=== PATIENT | female | born 2000 | race Two or more races ===

== ENCOUNTER → 2020-04-16 | Outpatient (REF) | payer OTHER ==
[2020-04-16 17:13] LABS: HEMATOCRIT 29.6 % (36.0-47.0); HEMOGLOBIN 8.7 g/dl (12.0-15.5); MEAN CORPUSCULAR HEMOGLOBIN 21.5 pg (27.0-33.0); MEAN CORPUSCULAR HGB CONC 29.4 g/dl (32.0-36.5); MEAN CORPUSCULAR VOLUME 73.1 fl (80.0-96.0); PLATELET COUNT, AUTOMATED 304 10^3/uL (150-450); RED BLOOD COUNT 4.05 10^6/uL (4.00-5.40); WHITE BLOOD COUNT 6.8 10^3/uL (4.0-10.0)
[2020-04-16 17:17] LABS: GLUCOSE CHALLENGE TEST 1 HOUR 99 MG/DL (LESS THAN 140)
[2020-04-16 18:12] LABS: HIV 1&2 SCREEN CENTAUR NEGATIVE (NEGATIVE)
== END ==
LOC: M PLALAB 14:36
PROVIDERS: ATTEND Advanced Practice Midwife
DX: Z3A.26 26 weeks gestation of pregnancy (principal)
CPT/HCPCS: 36415; 82950; 85027; 86803; 86850; 86900; 86901; 87340; 87389; G0463

== ENCOUNTER → 2020-05-19 | Outpatient (REF) | payer OTHER ==
[2020-05-24 09:06] LABS: HEMOGLOBIN A 98.3 % (96.4-98.8); HEMOGLOBIN A2 1.7 % (1.8-3.2); HGB SOLUBILITY Negative (Negative)
== END ==
LOC: M PLALAB 14:50
PROVIDERS: ATTEND Obstetrics & Gynecology
DX: O99.013 Anemia complicating pregnancy, third trimester (principal)
CPT/HCPCS: 36415; 83021; 85660; G0463

== ENCOUNTER 2020-05-26 09:34 | Outpatient (CLI) | payer OTHER ==
[~2020-05-26] VITALS: Ht 167.6 cm; Wt 67.2 kg
[~2020-05-26 09:34] MED LIST: IRON SUCROSE 500 MG in NS 250 ML OVER 4 HRS IV ONE
[2020-05-26 09:40] VITALS: BP 118/73
[2020-05-26] MEDS ORDERED: FERR325T81 PO (10:07)
[2020-05-26] MEDS ORDERED: PREN1CHW6 PO (10:08)
[2020-05-26 10:45] VITALS: BP 114/68
[2020-05-26 11:45] VITALS: BP_SYST 107
[2020-05-26 12:41] VITALS: BP 111/61
[2020-05-26 14:30] VITALS: BP 96/53
== END 2020-05-26 14:35 | disposition home or self-care (01) ==
LOC: M INFU 09:34
PROVIDERS: ATTEND Obstetrics & Gynecology
DX: D64.9 Anemia, unspecified (principal)
CPT/HCPCS: 96365; 96366; J1756

== ENCOUNTER → 2020-06-03 | Outpatient (REF) | payer OTHER ==
[~2020-06-03] MED LIST changes: +FERR325T81 PO; -IRON SUCROSE 500 MG in NS 250 ML OVER 4 HRS IV ONE; +PREN1CHW6 PO
== END ==
LOC: M PLALAB 16:19
PROVIDERS: ATTEND Obstetrics & Gynecology
DX: Z3A.36 36 weeks gestation of pregnancy (principal)

== ENCOUNTER → 2020-06-14 | Outpatient (REF) | payer OTHER ==
[2020-06-14 18:07] LABS: HEMATOCRIT 34.6 % (36.0-47.0); HEMOGLOBIN 10.3 g/dl (12.0-15.5); MEAN CORPUSCULAR HEMOGLOBIN 22.4 pg (27.0-33.0); MEAN CORPUSCULAR HGB CONC 29.8 g/dl (32.0-36.5); MEAN CORPUSCULAR VOLUME 75.2 fl (80.0-96.0); PLATELET COUNT, AUTOMATED 289 10^3/uL (150-450); WHITE BLOOD COUNT 7.6 10^3/uL (4.0-10.0)
== END ==
LOC: M PLALAB 08:33
PROVIDERS: ATTEND Obstetrics & Gynecology
DX: D64.9 Anemia, unspecified (principal)
CPT/HCPCS: 36415; 85027; G0463

== ENCOUNTER 2020-07-06 00:50 | Inpatient (IN) | payer OTHER ==
[~2020-07-06] VITALS: Ht 167.6 cm; Wt 67.3 kg
[2020-07-06] VITALS (35 sets, daily range): BP systolic 95–122; BP diastolic 53–79
[2020-07-06] MEDS ORDERED: LR 1,000 ML IV SCH (01:59)
[2020-07-06] MEDS ORDERED: PENICILLIN G POTASSIUM IV 5 MU in D5W MINI-BAG PLUS 100 ML IV STA (01:59)
[2020-07-06] MEDS ORDERED: LACTATED RINGER'S 1000 ML IV STA (01:59)
[2020-07-06] MEDS ORDERED: OXYTOCIN DRIP 30 UNITS in IV 1 EA IV SCH (02:00)
--- OUTSIDE RECORDS SUMMARY | 2020-07-06 02:09 | CCD ---
Author Author [facility] Organization [facility] Address Unknown Phone Unavailable Care Team Providers Care Training Instructor Name Role Phone Idania Combs Unavailable PROBLEMS Type Condition ICD9-CM Code [id number] Code Onset Dates Condition S tatus SNOMED Code Notes Problem Encounter for supervision of other normal pregna ncy, second trimester Z34.82 Active 71326249 Problem Supervision of other normal Z34.80 Ac tive [id number] ALLERGIES No Known Allergies ENCOUNTERS from 1998 to 2020-04-09 Encounter Location Date Provider Diagnosis [facility] [place] [address] Mar, Idania Combs Encounter for sup ervision of other normal , second trimester Z34.82 and 26 weeks gestation of Z3A.26 IMMUNIZATIONS No Information SOCIAL HISTORY Tobacco Use: Social History Observation Description Date Details (start date - stop date) Never Smoker Sex Assigned At : Social History Observation Description Sex Assigned At Unknown Domestic Violence: Question Answer Notes Status: No history of abuse Sexual Hx: Question Answer Notes Had sex in the last 12 months (vaginal, oral, or anal)? Yes Have you ever had an STD? No with Men only Use protection? No Alcohol Screening: Question Answer Notes Did you have a drink containing alcohol in the past year? No Points 0 Interpretation Negative Tobacco Use: Question Answer Notes Are you a: never smoker REASON FOR REFERRAL No Information VITAL SIGNS Weight 139.0 lbs Mar, Height 66 in Mar, BMI 22.435 kg/m2 Mar, Blood pressure systolic 102 mm Hg Mar, Blood pressure diastolic 68 mm Hg Mar, MEDICATIONS Medication SIG (Take, Route, Frequency, Duration) Notes Start Da te End Date Status 27-1 MG 1 tablet Orally Once a day Active PROCEDURES No Information RESULTS No Results REASON FOR VISIT new OB,ESTABLISH CARE Goals Section No Information Health Concerns No Information MEDICAL EQUIPMENT No Information MENTAL STATUS No Information FUNCTIONAL STATUS No Information ASSESSMENTS Encounter Date Diagnosis Assessment Notes Treatment Notes Treatm ent Clinical Notes Mar, Encounter for supervision of other normal , second trimester (ICD-10 - Z34.82) Mar, 26 weeks gestation of (ICD-10 - Z3A.26 ) PLAN OF TREATMENT Treatment Notes Test Name Order Date CBC - Complete Blood Count 2020-04-09 AB SCREEN (INDIRECT DORIAN)GEL Antibody Screen 2020-03 Type and Screen (D Rh Antibody Screen) 2020-04-09 Glucose Challenge Test 1 Hour 2020-04-09 HIV 1&2 ANTIBODY SCREEN 2020-04-09 HEPATITIS C ANTIBODY INDEX 2020-04-09 HBSAG 2020-04-09 Next Appt Details 2 Weeks Reason: Follow Up:2 WeeksPrenatal Insurance Providers Payer Name Payer Address Payer Phone Insured Name Patient Relati onship to Insured Coverage Start Date Coverage End Date [facility] [address] [place] [id number] ANISA FINK self
--- OUTSIDE RECORDS SUMMARY | 2020-07-06 02:09 | CCD ---
Author Author [facility] Organization [facility] Address Unknown Phone Unavailable Care Team Providers Care Cement Patcher Name Role Phone Manju Pack Unavailable PROBLEMS Type Condition ICD9-CM Code UPT85-AR Code Onset Dates Condition S tatus W/U Status Risk SNOMED Code Notes Problem Supervision of other normal Z34.80 Ac tive confirm 961106295 Problem Anemia affecting in third trimester O99. 013 Active confirmed 51729850 Problem Encounter for supervision of other normal pregna ncy, second trimester Z34.82 Active confirmed 45622310 ALLERGIES No Known Allergies ENCOUNTERS from 1998 to 2020-07-01 Encounter Location Date Provider Diagnosis [facility] [address] [place] [phone] 15 Jun, 2020 Manju Pack 39 weeks gestation o f Z3A.39 ; Anemia affecting in third trimester O99.013 and Anemia D64.9 IMMUNIZATIONS Vaccine Route Administration Date Status TDAP 0.5mL (Boostrix) IM Intramuscular May 03, 2020 Administe red SOCIAL HISTORY Tobacco Use: Social History Observation Description Date Details (start date - stop date) Never Smoker Sex Assigned At : Social History Observation Description Sex Assigned At Unknown Language: Question Answer Notes Languages spoken: North Korean Domestic Violence: Question Answer Notes Status: No history of abuse Alcohol Screening: Question Answer Notes Did you have a drink containing alcohol in the past year? No Points 0 Interpretation Negative Tobacco Use: Question Answer Notes Are you a: never smoker Are you a: never smoker REASON FOR REFERRAL No Information VITAL SIGNS Weight 150 lbs 15 Feb, 2021 Height 66 in Jun, BMI 24.211 kg/m2 Jun, Blood pressure systolic 102 mm Hg Jun, Blood pressure diastolic 60 mm Hg Jun, MEDICATIONS Medication SIG (Take, Route, Frequency, Duration) Notes Start Da te End Date Status Ferrous Sulfate 325 (65 Fe) MG 1 tablet Orally twice daily for 3 0 day(s) Apr, Active 27-1 MG 1 tablet Orally Once a day Active PROCEDURES No Information RESULTS No Results REASON FOR VISIT 1WK PN Goals Section No Information Health Concerns No Information MEDICAL EQUIPMENT No Information MENTAL STATUS No Information FUNCTIONAL STATUS No Information ASSESSMENTS Encounter Date Diagnosis Assessment Notes Treatment Notes Treatm ent Clinical Notes Jun, 39 weeks gestation of (ICD-10 - Z3A.39 ) Jun, Anemia affecting in third trimester (I CD-10 - O99.013) Jun, Anemia (ICD-10 - D64.9) PLAN OF TREATMENT Next Appt Details 1 Week Reason:PN Provider Name:Manju Pack, 2020-06 10:20:00 AM, [address] [place], [address], Follow Up:1 WeekPN Insurance Providers Payer Name Payer Address Payer Phone Insured Name Patient Relati onship to Insured Coverage Start Date Coverage End Date [facility] INSURANCE [address] [place] [id number] ANISA FINK self
--- OUTSIDE RECORDS SUMMARY | 2020-07-06 02:09 | CCD ---
Author Author [facility] Organization [facility] Address Unknown Phone Unavailable Care Team Providers Care Professor Of Languages Name Role Phone Susu Radford Unavailable PROBLEMS Type Condition ICD9-CM Code [id number] Code Onset Dates Condition S tatus SNOMED Code Notes Problem Encounter for supervision of other normal pregna ncy, second trimester Z34.82 Active 58043333 Problem Supervision of other normal Z34.80 Ac tive [id number] ALLERGIES No Known Allergies ENCOUNTERS from 1998 to 2020-04-21 Encounter Location Date Provider Diagnosis [facility] [place] [address] Apr, Susu Radford Encounter for superv ision of normal in third trimester Z34.93 and 29 weeks gestation of Z3A.29 IMMUNIZATIONS No Information SOCIAL HISTORY Tobacco Use: [...] FOR REFERRAL No Information VITAL SIGNS Weight 143 lbs Apr, Height 66 in Apr, BMI 23.081 kg/m2 Apr, Blood pressure systolic 104 mm Hg Apr, Blood pressure diastolic 66 mm Hg Apr, MEDICATIONS Medication SIG (Take, Route, Frequency, Duration) Notes Start Da te End Date Status 27-1 MG 1 tablet Orally Once a day Active PROCEDURES No Information RESULTS No Results REASON FOR VISIT pn Goals Section No Information Health Concerns No Information MEDICAL EQUIPMENT No Information MENTAL STATUS No Information FUNCTIONAL STATUS No Information ASSESSMENTS Encounter Date Diagnosis Assessment Notes Treatment Notes Treatm ent Clinical Notes Apr, Encounter for supervision of normal in third trimester (ICD-10 - Z34.93) Apr, 29 weeks gestation of (ICD-10 - Z3A.29 ) PLAN OF TREATMENT Next Appt Details 2 Weeks Reason: Insurance Providers Payer Name Payer Address Payer Phone Insured Name Patient Relati onship to Insured Coverage Start Date Coverage End Date [facility] INS[facility]ANCE [address] [place] [id number] ANISA FINK self
--- OUTSIDE RECORDS SUMMARY | 2020-07-06 02:09 | CCD ---
Author Author [facility] Organization [facility] Address Unknown Phone Unavailable Support Name Relationship Address Phone JAY FINKIS [address]AR [id number] [place] [address] MARCOS SOLIS ECON [id number] [place] [address] Care Team Providers Care Filter Plant Operator Name Role Phone Manju Pack Unavailable PROBLEMS Type Condition ICD9-CM Code [id number] Code Onset Dates Condition S tatus W/U Status Risk SNOMED Code Notes Problem Supervision of other normal Z34.80 Ac tive confirm 103527816 Problem Anemia affecting in third trimester O99. 013 Active confirmed 03559129 Problem Encounter for supervision of other normal pregna ncy, second trimester Z34.82 Active confirmed 52667619 ALLERGIES No Known Allergies ENCOUNTERS from 1998 to 2020-06-19 Encounter Location Date Provider Diagnosis [facility] Women[facility] Breast Care [address] [place] [phone] Jun, Manju Pack 37 weeks gestation o f Z3A.37 ; Anemia D64.9 and Anemia affecting in third trimester O99.013 IMMUNIZATIONS Vaccine Route Administration Date Status TDAP 0.5mL (Boostrix) IM Intramuscular May 03, 2020 Administe red SOCIAL HISTORY Tobacco Use: Social History Observation Description Date Details (start date - stop date) Never Smoker Sex Assigned At : Social History Observation Description Sex Assigned At Unknown Language: Question Answer Notes Languages spoken: Norwegian Domestic Violence: Question Answer Notes Status: No history of abuse Alcohol Screening: Question Answer Notes Did you have a drink containing alcohol in the past year? No Points 0 Interpretation Negative Tobacco Use: Question Answer Notes Are you a: never smoker Are you a: never smoker REASON FOR REFERRAL No Information VITAL SIGNS Weight 147.6 lbs Jun, Weight-kg 66.95 kg Jun, Height 66 in Jun, BMI 23.823 kg/m2 Jun, Blood pressure systolic 110 mm Hg Jun, Blood pressure diastolic 68 mm Hg Jun, MEDICATIONS Medication SIG (Take, Route, Frequency, Duration) Notes Start Da te End Date Status 27-1 MG 1 tablet Orally Once a day Active Ferrous Sulfate 325 (65 Fe) MG 1 tablet Orally twice daily for 3 0 day(s) Apr, Active PROCEDURES No Information RESULTS Component Value Reference Range CBC - Complete Blood Count Reviewed date:06/15/2020 13:05:12 Interpretation: Performing Lab:[facility], [facility] [address] [facility] [address] , ,[place] [address] WHITE BLOOD COUNT 7.6 4.0-10.0 RED BLOOD COUNT 4.60 4.00-5.40 HEMOGLOBIN 10.3 12.0-15.5 HEMATOCRIT 34.6 36.0-47.0 MEAN CORPUSCULAR VOLUME 75.2 80.0-96.0 MEAN CORPUSCULAR HEMOGLOBIN 22.4 27.0-33.0 MEAN CORPUSCULAR HGB CONC 29.8 32.0-36.5 RED CELL DISTRIBUTION WIDTH 20.2 11.5-14.5 PLATELET COUNT, AUTOMATED 289 150-450 REASON FOR VISIT 1WK PN Goals Section No Information Health Concerns No Information MEDICAL EQUIPMENT No Information MENTAL STATUS No Information FUNCTIONAL STATUS No Information ASSESSMENTS Encounter Date Diagnosis Assessment Notes Treatment Notes Treatm ent Clinical Notes Jun, 37 weeks gestation of (ICD-10 - Z3A.37 ) Jun, Anemia (ICD-10 - D64.9) Jun, Anemia affecting in third trimester (I CD-10 - O99.013) PLAN OF TREATMENT Next Appt Details 1 Week Reason:PN Provider Name:Manju Pack, 2020-06 02:40:00 PM, [address] [place], [address], Follow Up:1 WeekPN Insurance Providers Payer Name Payer Address Payer Phone Insured Name Patient Relati onship to Insured Coverage Start Date Coverage End Date [facility] INS[facility] [address] [place] [id number] ANISA FINK self
--- OUTSIDE RECORDS SUMMARY | 2020-07-06 02:09 | CCD ---
Author Author [facility] Organization [facility] Address Unknown Phone Unavailable Care Team Providers Care Lead Front Desk Agent Name Role Phone Idania Combs Unavailable PROBLEMS Type Condition ICD9-CM Code [id number] Code Onset Dates Condition S tatus SNOMED Code Notes Problem Encounter for supervision of other normal pregna ncy, second trimester Z34.82 Active 29656651 Problem Supervision of other normal Z34.80 Ac tive 880175383 ALLERGIES No Known Allergies ENCOUNTERS from 1998 to 2020-04-20 Encounter Location Date Provider Diagnosis [facility] Women[facility] Breast Care [facility] [place] [address] Mar, Idania Combs Encounter for sup ervision [...] a day Active PROCEDURES No Information RESULTS REASON FOR VISIT new OB,ESTABLISH CARE Goals [...] Order Date CBC - Complete Blood Count 2020-04-20 AB SCREEN (INDIRECT DORIAN)GEL Antibody Screen 2020-04 Glucose Challenge Test 1 Hour 2020-04-20 HIV 1&2 ANTIBODY SCREEN 2020-04-20 HEPATITIS C ANTIBODY INDEX 2020-04-20 HBSAG 2020-04-20 Next Appt Details 2 Weeks Reason: Follow Up:2 WeeksPrenatal Insurance Providers Payer Name Payer Address Payer Phone Insured Name Patient Relati onship to Insured Coverage Start Date Coverage End Date [facility] INS[facility] [address] [place] [address] ANISA FINK self
--- OUTSIDE RECORDS SUMMARY | 2020-07-06 02:09 | CCD ---
Author Author [facility] Organization [facility] Address Unknown Phone Unavailable Care Team Providers Care Sales Representative Sales Manager Name Role Phone Manju Pack Unavailable PROBLEMS Type Condition ICD9-CM Code [id number] Code Onset Dates Condition S tatus W/U Status Risk SNOMED Code Notes Problem Supervision of other normal Z34.80 Ac tive confirm 308969155 Problem Anemia affecting in third trimester O99. 013 Active confirmed 43534768 Problem Encounter for supervision of other normal pregna ncy, second trimester Z34.82 Active confirmed 42931063 ALLERGIES No Known Allergies ENCOUNTERS from 1998 to 2020-06-14 Encounter Location Date Provider Diagnosis [facility] Women[facility] Breast Care [address] [place] [phone] May, Manju Pack 36 weeks gestation o f Z3A.36 ; Anemia complicating in third trimester O99.013 and Anemia D64.9 IMMUNIZATIONS Vaccine Route Administration Date Status TDAP 0.5mL (Boostrix) IM Intramuscular May 03, 2020 Administe red SOCIAL HISTORY Tobacco Use: Social History Observation Description Date Details (start date - stop date) Never Smoker Sex Assigned At : Social History Observation Description Sex Assigned At Unknown Language: Question Answer Notes Languages spoken: Icelandic Domestic Violence: Question Answer Notes Status: No history of abuse Alcohol Screening: Question Answer Notes Did you have a drink containing alcohol in the past year? No Points 0 Interpretation Negative Tobacco Use: Question Answer Notes Are you a: never smoker Are you a: never smoker REASON FOR REFERRAL No Information VITAL SIGNS Weight 146 lbs May, Height 66 in May, BMI 23.565 kg/m2 May, Blood pressure systolic 110 mm Hg May, Blood pressure diastolic 66 mm Hg May, MEDICATIONS Medication SIG (Take, Route, Frequency, Duration) Notes Start Da te End Date Status 27-1 MG 1 tablet Orally Once a day Active Ferrous Sulfate 325 (65 Fe) MG 1 tablet Orally twice daily for 3 0 day(s) Apr, Active PROCEDURES No Information RESULTS Component Value Reference Range GROUP B STREP CULTURE Reviewed date:06/11/2020 10:16:14 Interpretation: Performing Lab:[facility], [facility] [address] [facility] [id number] , ,[place] [address] REASON FOR VISIT 3 weeks Goals Section No Information Health Concerns No Information MEDICAL EQUIPMENT No Information MENTAL STATUS No Information FUNCTIONAL STATUS No Information ASSESSMENTS Encounter Date Diagnosis Assessment Notes Treatment Notes Treatm ent Clinical Notes May, 36 weeks gestation of (ICD-10 - Z3A.36 ) May, Anemia complicating pregnanc y in third trimester (ICD-10 - O99.013) May, Anemia (ICD-10 - D64.9) PLAN OF TREATMENT Next Appt Details 2 Weeks Reason:PN Provider Name:Manju Pack, 2020-06 02:40:00 PM, [address] [place], [address], Follow Up:2 WeeksPN Insurance Providers Payer Name Payer Address Payer Phone Insured Name Patient Relati onship to Insured Coverage Start Date Coverage End Date [facility] INS[facility] [address] [place] [address] ANISA FINK
--- OUTSIDE RECORDS SUMMARY | 2020-07-06 02:09 | CCD ---
Author Author [facility] Organization [facility] Address Unknown Phone Unavailable Care Team Providers Care System Integration Engineer Name Role Phone Manju Pack Unavailable PROBLEMS Type Condition ICD9-CM Code PRS92-EG Code Onset Dates Condition S tatus SNOMED Code Notes Problem Supervision of other normal Z34.80 Ac tive 742517255 Problem Anemia affecting in third trimester O99. 013 Active 67966202 Problem Encounter for supervision of other normal pregna ncy, second trimester Z34.82 Active 65543515 ALLERGIES No Known Allergies ENCOUNTERS from 1998 to 2020-05-24 Encounter Location Date Provider Diagnosis [facility] Breast Care [address] [place] [phone] May, Manju Pack IMMUNIZATIONS Vaccine Route Administration Date Status TDAP 0.5mL (Boostrix) IM Intramuscular May 03, 2020 Administe red SOCIAL HISTORY Tobacco Use: Social History Observation Description Date Details (start date - stop date) Never Smoker Sex Assigned At : Social History Observation Description Sex Assigned At Unknown Language: Question Answer Notes Languages spoken: Sammarinese Domestic Violence: Question Answer Notes Status: No history of abuse Alcohol Screening: Question Answer Notes Did you have a drink containing alcohol in the past year? No Points 0 Interpretation Negative Tobacco Use: Question Answer Notes Are you a: never smoker Are you a: never smoker REASON FOR REFERRAL No Information VITAL SIGNS No information MEDICATIONS Medication SIG (Take, Route, Frequency, Duration) Notes Start Da te End Date Status Ferrous Sulfate 325 (65 Fe) MG 1 tablet Orally twice daily for 3 0 day(s) Apr, Active 27-1 MG 1 tablet Orally Once a day Active PROCEDURES No Information RESULTS No Results REASON FOR VISIT No Information Goals Section No Information Health Concerns No Information MEDICAL EQUIPMENT No Information MENTAL STATUS No Information FUNCTIONAL STATUS No Information ASSESSMENTS No Information PLAN OF TREATMENT Next Appt Details Provider Name:Manju Pack, 2020-05 09:40:00 AM, [address] [place], [address], Insurance Providers Payer Name Payer Address Payer Phone Insured Name Patient Relati onship to Insured Coverage Start Date Coverage End Date [facility] [employer]ANCE [address] [place] [address] ANISA FINK self
--- OUTSIDE RECORDS SUMMARY | 2020-07-06 02:09 | CCD ---
Author Author [facility] Organization [facility] Address Unknown Phone Unavailable Care Team Providers Care Iron Erector Name Role Phone Idania Combs Unavailable PROBLEMS Type Condition ICD9-CM Code WQA08-PE Code Onset Dates Condition S tatus SNOMED Code Notes Problem Encounter for supervision of other normal pregna ncy, second trimester Z34.82 Active 12667037 Problem Supervision of other normal Z34.80 Ac tive 419406387 ALLERGIES No Known Allergies ENCOUNTERS from 1998 to 2020-04-24 Encounter Location Date Provider Diagnosis [facility] Women[facility] Well[facility] Breast Care [address] [place] [phone] Apr, Idania Combs Anemia D64.9 IMMUNIZATIONS No Information SOCIAL HISTORY Tobacco Use: Social History Observation Description Date Details (start date - stop date) Never Smoker Sex Assigned At : Social History Observation Description Sex Assigned At Unknown Language: Question Answer Notes Languages spoken: Frisian Domestic Violence: Question Answer Notes Status: No [...] Treatment Notes Treatm ent Clinical Notes Apr, Anemia (ICD-10 - D64.9) PLAN OF TREATMENT Medication Medication Name Sig Start Date Stop Date Ferrous Sulfate 325 (65 Fe) MG 1 tablet Orally twice daily f or 30 day(s) Apr, Next Appt Details Provider Name:Susu Radford, 2020-05-03 0 2:20:00 PM, [address] [place] [address], [phone], Insurance Providers Payer Name Payer Address Payer Phone Insured Name Patient Relati onship to Insured Coverage Start Date Coverage End Date [facility] INS[facility]ANCE [address] [place] [id number] ANISA FINK self
--- OUTSIDE RECORDS SUMMARY | 2020-07-06 02:09 | CCD ---
Author Author [facility] Organization [facility] Address Unknown Phone Unavailable Care Team Providers Care Market Editor Name Role Phone Susu Radford Unavailable PROBLEMS Type Condition ICD9-CM Code PTX40-ST Code Onset Dates Condition S tatus SNOMED Code Notes Problem Encounter for supervision of other normal pregna ncy, second trimester Z34.82 Active 34731156 Problem Supervision of other normal Z34.80 Ac tive 965153010 ALLERGIES No Known Allergies ENCOUNTERS from 1998 to 2020-05-04 Encounter Location Date Provider Diagnosis [facility] Women[facility] [place] [address] Apr, Susu Radford Anemia complicating in third trimester O99.013 ; 31 weeks gestation of Z3A.31 and Encounter for immunization Z23 IMMUNIZATIONS Vaccine Route Administration Date Status TDAP 0.5mL (Boostrix) IM Intramuscular May 03, 2020 Administe red SOCIAL HISTORY Tobacco Use: Social History Observation Description Date Details (start date - stop date) Never Smoker Sex Assigned At : Social History Observation Description Sex Assigned At Unknown Language: Question Answer Notes Languages spoken: Burkinan Domestic Violence: Question Answer Notes Status: No history of abuse Alcohol Screening: Question Answer Notes Did you have a drink containing alcohol in the past year? No Points 0 Interpretation Negative Tobacco Use: Question Answer Notes Are you a: never smoker Are you a: never smoker REASON FOR REFERRAL No Information VITAL SIGNS Weight 144.0 lbs Apr, Weight-kg 65.32 kg Apr, Height 66 in Apr, BMI 23.242 kg/m2 Apr, Respiratory Rate 144.0 /min Apr, Blood pressure systolic 106 mm Hg Apr, Blood pressure diastolic 60 mm Hg Apr, MEDICATIONS Medication SIG (Take, Route, Frequency, Duration) Notes Start Da te End Date Status Ferrous Sulfate 325 (65 Fe) MG 1 tablet Orally twice daily for 3 0 day(s) Apr, Active 27-1 MG 1 tablet Orally Once a day Active PROCEDURES from 1998 to 2020-05-04 Procedure Date Ordered Result Body Site Immunization: Boostrix 0.5mL IM (TDAP) 2020-05-03 N/A RESULTS No Results REASON FOR VISIT 2WK PN Goals Section No Information Health Concerns No Information MEDICAL EQUIPMENT No Information MENTAL STATUS No Information FUNCTIONAL STATUS No Information ASSESSMENTS Encounter Date Diagnosis Assessment Notes Treatment Notes Treatm ent Clinical Notes Apr, Anemia complicating pregnanc y in third trimester (ICD-10 - O99.013) Apr, 31 weeks gestation of (ICD-10 - Z3A.31 ) Apr, Encounter for immunization (ICD-10 - Z23) PLAN OF TREATMENT Next Appt Details 2 Weeks Reason: Provider Name:Manju Pack, 2020-05 02:20:00 PM, [address] [place], [address], Insurance Providers Payer Name Payer Address Payer Phone Insured Name Patient Relati onship to Insured Coverage Start Date Coverage End Date [facility] [address] [place] [id number] ANISA FINK self
--- OUTSIDE RECORDS SUMMARY | 2020-07-06 02:09 | CCD ---
Author Author [facility] Organization [facility] Address Unknown Phone Unavailable Care Team Providers Care Fish Liver Sorter Name Role Phone Manju Pack Unavailable PROBLEMS Type Condition ICD9-CM Code [id number] Code Onset Dates Condition S tatus W/U Status Risk SNOMED Code Notes Problem Supervision of other normal Z34.80 Ac tive confirm 924184354 Problem Anemia affecting in third trimester O99. 013 Active confirmed [id number] Problem Encounter for supervision of other normal pregna ncy, second trimester Z34.82 Active confirmed [id number] ALLERGIES No Known Allergies ENCOUNTERS from 1998 to 2020-06-14 Encounter Location Date Provider Diagnosis [facility] [address] [place] [id number] May, Manju Pack IMMUNIZATIONS Vaccine Route Administration Date Status TDAP 0.5mL (Boostrix) IM Intramuscular May 03, 2020 Administe red SOCIAL HISTORY Tobacco Use: Social History Observation Description Date Details (start date - stop date) Never Smoker Sex Assigned At : Social History Observation Description Sex Assigned At Unknown Language: Question Answer Notes Languages spoken: [place] Domestic Violence: Question Answer Notes Status: No [...] day(s) Apr, Active PROCEDURES No Information RESULTS No Results REASON FOR VISIT 37 week appointment Goals Section No Information Health Concerns No Information MEDICAL EQUIPMENT No Information MENTAL STATUS No Information FUNCTIONAL STATUS No Information ASSESSMENTS No Information PLAN OF TREATMENT Next Appt Details Provider Name:Manju Pack, 2020-06 02:40:00 PM, [address] [place], [phone], Insurance Providers Payer Name Payer Address Payer Phone Insured Name Patient Relati onship to Insured Coverage Start Date Coverage End Date [facility] [employer] [employer] [address] [place] [id number] ANISA FINK self
--- OUTSIDE RECORDS SUMMARY | 2020-07-06 02:09 | CCD ---
Author Author [facility] Organization [facility] Address Unknown Phone Unavailable Care Team Providers Care Air Vice Marshal Name Role Phone Manju Pakc Unavailable PROBLEMS Type Condition ICD9-CM Code [id number] Code Onset Dates Condition S tatus SNOMED Code Notes Problem Supervision of other normal Z34.80 Ac tive 977464422 Problem Anemia affecting in third trimester O99. 013 Active 42347259 Problem Encounter for supervision of other normal pregna ncy, second trimester Z34.82 Active [id number] ALLERGIES No Known Allergies ENCOUNTERS from 1998 to 2020-05-22 Encounter Location Date Provider Diagnosis [facility] [address] [place] [phone] May, Manju Pack 33 weeks gestation o f Z3A.33 ; Anemia affecting in third trimester O99.013 and Anemia D64.9 IMMUNIZATIONS Vaccine Route Administration Date Status TDAP 0.5mL (Boostrix) IM Intramuscular May 03, 2020 Administe red SOCIAL HISTORY Tobacco Use: Social History Observation Description Date Details (start date - stop date) Never Smoker Sex Assigned At : Social History Observation Description Sex Assigned At Unknown Language: Question Answer Notes Languages spoken: [place] Domestic Violence: Question Answer Notes Status: No history of abuse Alcohol Screening: Question Answer Notes Did you have a drink containing alcohol in the past year? No Points 0 Interpretation Negative Tobacco Use: Question Answer Notes Are you a: never smoker Are you a: never smoker REASON FOR REFERRAL No Information VITAL SIGNS Weight 146 lbs May, Height 66 in May, BMI 23.56 kg/m2 May, Blood pressure systolic 100 mm Hg May, Blood pressure diastolic 68 mm Hg May, MEDICATIONS Medication SIG (Take, Route, Frequency, Duration) Notes Start Da te End Date Status Ferrous Sulfate 325 (65 Fe) MG 1 tablet Orally twice daily for 3 0 day(s) Apr, Active 27-1 MG 1 tablet Orally Once a day Active PROCEDURES No Information RESULTS No Results REASON FOR VISIT 2WK PN Goals Section No Information Health Concerns No Information MEDICAL EQUIPMENT No Information MENTAL STATUS No Information FUNCTIONAL STATUS No Information ASSESSMENTS Encounter Date Diagnosis Assessment Notes Treatment Notes Treatm ent Clinical Notes May, 33 weeks gestation of (ICD-10 - Z3A.33 ) May, Anemia affecting in third trimester (I CD-10 - O99.013) May, Anemia (ICD-10 - D64.9) PLAN OF TREATMENT Treatment Notes Test Name Order Date HEMOGLOBIN ELECTROPHORESIS 2020-05-22 Next Appt Details 3 Weeks Reason:PN Provider Name:Manju Pack, 2020-05 09:40:00 AM, [address] [place], [phone], Follow Up:3 WeeksPN Insurance Providers Payer Name Payer Address Payer Phone Insured Name Patient Relati onship to Insured Coverage Start Date Coverage End Date [facility] [employer] [address] [place] [id number] ANISA FINK self
--- OUTSIDE RECORDS SUMMARY | 2020-07-06 02:10 | CCD ---
Author Author [facility] Organization [facility] Address Unknown Phone Unavailable Care Team Providers Care Map Mounter Name Role Phone Vilma, N Chris PATIENT SERVICES COORDINATOR Unavailable Unavailable Vilma, N Chris PATIENT SERVICES COORDINATOR Unavailable Unavailable Vilma, N Chris PATIENT SERVICES COORDINATOR Unavailable Unavailable [place], N Chris PATIENT SERVICES COORDINATOR Unavailable Unavailable [place], N Chris PATIENT SERVICES COORDINATOR Unavailable Unavailable Vilma, N Chris PATIENT SERVICES COORDINATOR Unavailable Unavailable [place], N Chris PATIENT SERVICES COORDINATOR Unavailable Unavailable [place], N Chris PATIENT SERVICES COORDINATOR Unavailable Unavailable Vilma, N Chris PATIENT SERVICES COORDINATOR Unavailable Unavailable Vilma, N Chris PATIENT SERVICES COORDINATOR Unavailable Unavailable [place], N Chris PATIENT SERVICES COORDINATOR Unavailable Unavailable Vilma, N Chris PATIENT SERVICES COORDINATOR Unavailable Unavailable Vilma, N Chris PATIENT SERVICES COORDINATOR Unavailable Unavailable [place], N Chris PATIENT SERVICES COORDINATOR Unavailable Unavailable [place], N Chris PATIENT SERVICES COORDINATOR Unavailable Unavailable [place], N Chris PATIENT SERVICES COORDINATOR Unavailable Unavailable Vilma, N Chris PATIENT SERVICES COORDINATOR Unavailable Unavailable Vilma, N Chris PATIENT SERVICES COORDINATOR Unavailable Unavailable Vilma, N Chris PATIENT SERVICES COORDINATOR Unavailable Unavailable [place], N Chris PATIENT SERVICES COORDINATOR Unavailable Unavailable Vilma, N Chris PATIENT SERVICES COORDINATOR Unavailable Unavailable Vilma, N Chris PATIENT SERVICES COORDINATOR Unavailable Unavailable [place], N Chris PATIENT SERVICES COORDINATOR Unavailable Unavailable [place], N Chris PATIENT SERVICES COORDINATOR Unavailable Unavailable [place], N Chris PATIENT SERVICES COORDINATOR Unavailable Unavailable [place], N Chris PATIENT SERVICES COORDINATOR Unavailable Unavailable Vilma, N Chris PATIENT SERVICES COORDINATOR Unavailable Unavailable Vilma, N Chris PATIENT SERVICES COORDINATOR Unavailable Unavailable Vilma, N Chris PATIENT SERVICES COORDINATOR Unavailable Unavailable Vilma, N Chris PATIENT SERVICES COORDINATOR Unavailable Unavailable Vilma, N Chris PATIENT SERVICES COORDINATOR Unavailable Unavailable Salazar, Krystina PATIENT SERVICES COORDINATOR Unavailable Unavailable Salazar, Krystina PATIENT SERVICES COORDINATOR Unavailable Unavailable Salazar, Krystina PATIENT SERVICES COORDINATOR Unavailable Unavailable Salazar, Krystina PATIENT SERVICES COORDINATOR Unavailable Unavailable Salazar, Krystina PATIENT SERVICES COORDINATOR Unavailable Unavailable Salazar, Krystina PATIENT SERVICES COORDINATOR Unavailable Unavailable Salazar, Krystina PATIENT SERVICES COORDINATOR Unavailable Unavailable Salazar, Krystina PATIENT SERVICES COORDINATOR Unavailable Unavailable Salazar, Krystina PATIENT SERVICES COORDINATOR Unavailable Unavailable Salazar, Krystina PATIENT SERVICES COORDINATOR Unavailable Unavailable Salazar, Krystina PATIENT SERVICES COORDINATOR Unavailable Unavailable Re-disclosure Warning The records that you are about to access may contain information from federally-assisted alcohol or drug abuse programs. If such information is present, then the following federally mandated warning applies: This information has been disclosed to you from records protected by federal confidentiality rules (42 CFR part 2). The federal rules prohibit you from making any further disclosure of this information unless further disclosure is expressly permitted by the written consent of the person to whom it pertains or as otherwise permitted by 42 CFR part 2. A general authorization for the release of medical or other information is NOT sufficient for this purpose. The Federal rules restrict any use of the information to criminally investigate or prosecute any alcohol or drug abuse patient.The records that you are about to access may contain highly sensitive health information, the redisclosure of which is protected by Article 27-F of the [facility] Public Health law. If you continue you may have access to information: Regarding HIV / AIDS; Provided by facilities licensed or operated by the [facility] Office of Mental Health; or Provided by the [facility] Office for People With Developmental Disabilities. If such information is present, then the following [facility] mandated warning applies: This information has been disclosed to you from confidential records which are protected by state law. State law prohibits you from making any further disclosure of this information without the specific written consent of the person to whom it pertains, or as otherwise permitted by law. Any unauthorized further disclosure in violation of state law may result in a fine or senior care sentence or both. A general authorization for the release of medical or other information is NOT sufficient authorization for further disc losure. Encounters Encounter Providers Location Date Indications Data Source(s ) ( [facility]OB) [facility] [address] [place] [address] 06/28/2020 12:00:00 AM EST eCW1 ([facility]) ( ESTOB) [facility] [address] [place] [address] 06/14/2020 12:00:00 AM EST eCW1 ([facility]) [place] [address] [facility] [place] [address] 06/10/2020 12:00:00 AM EST eCW1 ([facility]) (WC ESTOB) [facility] [address] [place] [address] 06/07/2020 12:00:00 AM EST eCW1 ([facility]) Unknown [address] [facility] [address] 05/19/2020 12:00:00 AM EST eCW1 ([facility]) ( ESTOB) [facility] [address] [place] [address] 05/19/2020 12:00:00 AM EST eCW1 ([facility]) ( ESTOB) [facility] [address] [place] [address] 05/03/2020 12:00:00 AM EST eCW1 ([facility]) Unknown [address] [facility] [place] [address] 04/23/2020 12:00:00 AM EST eCW1 ([facility]) ( ESTOB) [facility] [address] [place] [address] 04/16/2020 12:00:00 AM EST eCW1 ([facility]) ( NEWOB) [facility] New OB Visit [address] [place] [address] 04/01/2020 12:00:00 AM EST eCW1 ([facility]) Outpatient Attender: Krystina manzo 03/18/2020 04:00:00 PM EST [facility] ([facility]) Outpatient Attender: Krystina manzo 01/04/2020 10:30:00 AM EDT MEDENT ([facility]) Outpatient Attender: Chris Esparza NP [email or web address] 11/17/2019 12 :00:00 AM EDT [facility] Care [address] [address] 09/09/2019 12:00:00 AM EDT eCW1 ([facility]) Outpatient 08/19/2019 05:55:00 AM EDT [facility] Immunizations Vaccine Date Status Description Data Source(s) Tdap 05/03/2020 02:47:00 PM EST completed e CW1 ([facility]) Tdap 05/03/2020 02:47:00 PM EST completed e CW1 ([facility]) Tdap 05/03/2020 02:47:00 PM EST completed e CW1 ([facility]) Tdap 05/03/2020 02:47:00 PM EST completed e CW1 ([facility]) Tdap 05/03/2020 02:47:00 PM EST completed e CW1 ([facility]) Tdap 05/03/2020 02:47:00 PM EST completed e CW1 ([facility]) Tdap 05/03/2020 02:47:00 PM EST completed e CW1 ([facility]) Medications Medication Brand Name Start Date Product Form Dose Route Admi nistrative Instructions Pharmacy Instructions Status Indications Reaction Description Data Source(s) ferrous sulfate 325 MG Oral Tablet Ferrous Sulfate 325 (65 Fe) MG Ferrous Sulfate 325 (65 Fe) MG 04/23/2020 12:00:00 AM EST 1.0 {tablet} active Ferrous Sulfate 325 (65 Fe) MG eCW1 ([facility]) ferrous sulfate 325 MG Oral Tablet Ferrous Sulfate 325 (65 Fe) MG Ferrous Sulfate 325 (65 Fe) MG 04/23/2020 12:00:00 AM EST 1.0 {tablet} active Ferrous Sulfate 325 (65 Fe) MG eCW1 ([facility]) ferrous sulfate 325 MG Oral Tablet Ferrous Sulfate 325 (65 Fe) MG Ferrous Sulfate 325 (65 Fe) MG 04/23/2020 12:00:00 AM EST 1.0 {tablet} active Ferrous Sulfate 325 (65 Fe) MG eCW1 ([facility]) ferrous sulfate 325 MG Oral Tablet Ferrous Sulfate 325 (65 Fe) MG Ferrous Sulfate 325 (65 Fe) MG 04/23/2020 12:00:00 AM EST 1.0 {tablet} active Ferrous Sulfate 325 (65 Fe) MG eCW1 ([facility]) ferrous sulfate 325 MG Oral Tablet Ferrous Sulfate 325 (65 Fe) MG Ferrous Sulfate 325 (65 Fe) MG 04/23/2020 12:00:00 AM EST 1.0 {tablet} active Ferrous Sulfate 325 (65 Fe) MG eCW1 ([facility]) ferrous sulfate 325 MG Oral Tablet Ferrous Sulfate 325 (65 Fe) MG Ferrous Sulfate 325 (65 Fe) MG 04/23/2020 12:00:00 AM EST 1.0 {tablet} active Ferrous Sulfate 325 (65 Fe) MG eCW1 ([facility]) ferrous sulfate 325 MG Oral Tablet Ferrous Sulfate 325 (65 Fe) MG Ferrous Sulfate 325 (65 Fe) MG 04/23/2020 12:00:00 AM EST 1.0 {tablet} active Ferrous Sulfate 325 (65 Fe) MG eCW1 ([facility]) ferrous sulfate 325 MG Oral Tablet Ferrous Sulfate 325 (65 Fe) MG Ferrous Sulfate 325 (65 Fe) MG 04/23/2020 12:00:00 AM EST 1.0 {tablet} active Ferrous Sulfate 325 (65 Fe) MG eCW1 ([facility]) Insurance Providers Payer name Policy type / Coverage type Policy ID Covered republican ID Covered republican's relationship to mondragon Policy Mondragon Plan Information EAST HUMANA [id number] SP [id number] [facility] ACTIVE DUTY [id number] SP [id number] SELF PAY O [id number] S [id number] HUMANA EAST REG O [id number] S [id number] UNAVAILABLE Naila UNAVAILA BLE Problems, Conditions, and Diagnoses Code Display Name Description Problem Type Effective Dates Data Source(s) O99.013 Anemia of Anemia affecting i n third trimester Problem 05/19/2020 12:00:00 AM EST eCW1 ([facility]) Z34.82 [id number] Encounter for superv ision of other normal , second trimester Problem 04/01/2020 12:00:00 AM EST eCW1 ([facility]) Z34.80 care Supervision of other normal Joelle nevarez 03/31/2020 12:00:00 AM EST eCW1 ([facility]) Surgeries/Procedures Procedure Description Date Indications Data Source(s) Immunization: Boostrix 0.5mL IM (TDAP) 05/03/2020 12:0 0:00 AM EST eCW1 ([facility]) REAGENT STRIP/BLOOD GLUCOSE 09/09/2019 12:00:00 AM EDT eCW1 ([facility]) Results ID Date Data Source CBC - Complete Blood Count 06/14/2020 12:00:00 AM EST eCW1 ( [facility]) Name Value Range Interpretation Code Description Data Karen rce(s) Supporting Document(s) 4.60 4.00-5.40 RED BLOOD COUNT eCW1 ([facility]) 7.6 4.0-10.0 WHITE BLOOD COUNT eCW1 ([facility]) 10.3 12.0-15.5 HEMOGLOBIN eCW1 ([facility]) 22.4 27.0-33.0 MEAN CORPUSCULAR HEMOGLOB IN eCW1 ([facility]) 34.6 36.0-47.0 HEMATOCRIT eCW1 ([facility]) 75.2 80.0-96.0 MEAN CORPUSCULAR VOLUME e CW1 ([facility]) 29.8 32.0-36.5 MEAN CORPUSCULAR HGB CONC eCW1 ([facility]) 20.2 11.5-14.5 RED CELL DISTRIBUTION WID TH eCW1 ([facility]) [phone] PLATELET COUNT, AUTOMATED eCW1 ([facility]) ID Date Data Source GROUP B STREP CULTURE 06/07/2020 12:00:00 AM EST eCW1 ([facility]) Name Value Range Interpretation Code Description Data Karen rce(s) Supporting Document(s) GROUP B STREP CULTURE eCW1 ([facility]) ID Date Data Source HBSAG 04/16/2020 12:00:00 AM EST eCW1 ([facility]) Name Value Range Interpretation Code Description Data Karen rce(s) Supporting Document(s) NEGATIVE NEGATIVE eCW1 ([facility]) ID Date Data Source Glucose Challenge Test 1 Hour 04/16/2020 12:00:00 AM EST eCW 1 ([facility]) Name Value Range Interpretation Code Description Data Karen rce(s) Supporting Document(s) 99 LESS THAN 140 eCW1 ([facility]) ID Date Data Source [id number] 04/16/2020 12:00:00 AM EST eCW1 ([facility]) Name Value Range Interpretation Code Description Data Karen rce(s) Supporting Document(s) eCW1 ([facility]) ID Date Data Source HEPATITIS C ANTIBODY INDEX 04/16/2020 12:00:00 AM EST eCW1 ( [facility]) Name Value Range Interpretation Code Description Data Karen rce(s) Supporting Document(s) 0.0 <0.8 eCW1 ([facility]) ID Date Data Source Type and Screen (D Rh Antibody Screen) 04/16/2020 12:00:00 A M EST eCW1 ([facility]) Name Value Range Interpretation Code Description Data Karen rce(s) Supporting Document(s) B POSITIVE eCW1 ([facility]) NEGATIVE eCW1 ([facility]) ID Date Data Source [id number] 04/11/2020 12:00:00 AM EST [facility] Name Value Range Interpretation Code Description Data Karen rce(s) Supporting Document(s) SARS coronavirus 2 RNA [Presence] in Res piratory specimen by GAY with probe detection [facility] This lab was ordered by Armen Lemon and reported by [facility]. ID Date Data Source [id number] 03/12/2020 01:00:00 PM EDT [facility] Name Value Range Interpretation Code Description Data Karen rce(s) Supporting Document(s) SARS coronavirus 2 RNA [facility] This lab was ordered by [facility] and reported by [facility]. Procedure Social History Code Duration Value Status Description Data Source(s ) Smoking 06/28/2020 12:00:00 AM EST Never Smoker completed Never S moker eCW1 ([facility]) Smoking 06/14/2020 12:00:00 AM EST Never Smoker completed Never S moker eCW1 ([facility]) Smoking 06/14/2020 12:00:00 AM EST Never Smoker completed Never S moker eCW1 ([facility]) Smoking 06/14/2020 12:00:00 AM EST Never Smoker completed Never S moker eCW1 ([facility]) Smoking 05/17/2020 12:00:00 AM EST Never Smoker completed Never S moker eCW1 ([facility]) Smoking 05/17/2020 12:00:00 AM EST Never Smoker completed Never S moker eCW1 ([facility]) Smoking 05/03/2020 12:00:00 AM EST Never Smoker completed Never S moker eCW1 ([facility]) Smoking 04/16/2020 12:00:00 AM EST Never Smoker completed Never S moker eCW1 ([facility]) Smoking 04/16/2020 12:00:00 AM EST Never Smoker completed Never S moker eCW1 ([facility]) Smoking 04/16/2020 12:00:00 AM EST Never Smoker completed Never S moker eCW1 ([facility]) Smoking 04/01/2020 12:00:00 AM EST Never Smoker completed Never S moker eCW1 ([facility]) Smoking 03/18/2020 12:00:00 AM EST Patient has never smoked co mpleted Patient has never smoked MEDENT ([facility]) Vital Signs ID Date Data Source UNK Name Value Range Interpretation Code Description Data Source(s) Diastolic blood pressure 60 mm[Hg] 60 mm[Hg] eCW1 ([facility]) Systolic blood pressure 102 mm[Hg] 102 mm[Hg] e CW1 ([facility]) Body mass index (BMI) [Ratio] 24.211 kg/m2 24.2 11 kg/m2 eCW1 ([facility]) Body height 66 [in_i] 66 [in_i] eCW1 ([facility]) Body weight 150 [lb_av] 150 [lb_av] eCW1 ([facility]) Diastolic blood pressure 68 mm[Hg] 68 mm[Hg] eCW1 ([facility]) Systolic blood pressure 110 mm[Hg] 110 mm[Hg] e CW1 ([facility]) Body mass index (BMI) [Ratio] 23.823 kg/m2 23.8 23 kg/m2 eCW1 ([facility]) Body height 66 [in_i] 66 [in_i] eCW1 ([facility]) Body weight 66.95 kg 66.95 kg eCW1 ([facility]) Body weight 147.6 [lb_av] 147.6 [lb_av] eCW1 [facility] Diastolic blood pressure 66 mm[Hg] 66 mm[Hg] eCW1 ([facility]) Systolic blood pressure 110 mm[Hg] 110 mm[Hg] e CW1 ([facility]) Body mass index (BMI) [Ratio] 23.565 kg/m2 23.5 65 kg/m2 W1 ([facility]) Body height 66 [in_i] 66 [in_i] eCW1 ([facility]) Body weight 146 [lb_av] 146 [lb_av] eCW1 ([facility]) Diastolic blood pressure 68 mm[Hg] 68 mm[Hg] eCW1 ([facility]) Systolic blood pressure 100 mm[Hg] 100 mm[Hg] e CW1 ([facility]) Body mass index (BMI) [Ratio] 23.56 kg/m2 23.56 kg/m2 eCW1 ([facility]) Body height 66 [in_i] 66 [in_i] eCW1 ([facility]) Body weight 146 [lb_av] 146 [lb_av] eCW1 ([facility]) Diastolic blood pressure 60 mm[Hg] 60 mm[Hg] eCW1 ([facility]) Systolic blood pressure 106 mm[Hg] 106 mm[Hg] e CW1 ([facility]) Respiratory rate 144.0 /min 144.0 /min eCW1 ([facility]) Body mass index (BMI) [Ratio] 23.242 kg/m2 23.2 42 kg/m2 eCW1 ([facility]) Body height 66 [in_i] 66 [in_i] eCW1 ([facility]) Body weight 65.32 kg 65.32 kg eCW1 ([facility]) Body weight 144.0 [lb_av] 144.0 [lb_av] eCW1 ([facility]) Body weight 143 [lb_av] 143 [lb_av] eCW1 ([facility]) Diastolic blood pressure 66 mm[Hg] 66 mm[Hg] eCW1 ([facility]) Systolic blood pressure 104 mm[Hg] 104 mm[Hg] e CW1 ([facility]) Body mass index (BMI) [Ratio] 23.081 kg/m2 23.0 81 kg/m2 eCW1 ([facility]) Body height 66 [in_i] 66 [in_i] eCW1 ([facility]) Diastolic blood pressure 68 mm[Hg] 68 mm[Hg] eCW1 ([facility]) Systolic blood pressure 102 mm[Hg] 102 mm[Hg] e CW1 ([facility]) Body mass index (BMI) [Ratio] 22.435 kg/m2 22.4 35 kg/m2 eCW1 ([facility]) Body height 66 [in_i] 66 [in_i] eCW1 ([facility]) Body weight 139.0 [lb_av] 139.0 [lb_av] eCW1 ([facility]) Diastolic blood pressure 68 mm[Hg] 68 mm[Hg] eCW1 ([facility]) Systolic blood pressure 102 mm[Hg] 102 mm[Hg] e CW1 ([facility]) Body mass index (BMI) [Ratio] 22.435 kg/m2 22.4 35 kg/m2 eCW1 ([facility]) Body height 66 [in_i] 66 [in_i] eCW1 ([facility]) Body weight 139.0 [lb_av] 139.0 [lb_av] eCW1 ([facility]) Body mass index (BMI) [Ratio] 21.0 kg/m2 21.0 k g/m2 MEDENT ([facility]) Body height 66 [in_i] 66 [in_i] MEDENT ([facility], [facility]) 5'6" Body weight 130.00 [lb_av] 130.00 [lb_av] MEDEN T ([facility], [facility]) Body temperature 98.3 [degF] 98.3 [degF] MEDENT ([facility], [facility]) Oxygen saturation in Arterial blood by Pulse oximetry 100 % 100 % MEDENT ([facility], [facility]) Respiratory rate 12 /min 12 /min MEDENT ( [facility], [facility]) Heart rate 58 /min 58 /min MEDENT ([facility], [facility]) Diastolic blood pressure 72 mm[Hg] 72 mm[Hg] MEDENT ([facility], [facility]) Systolic blood pressure 107 mm[Hg] 107 mm[Hg] M EDENT ([facility], [facility]) Body mass index (BMI) [Ratio] 20.5 kg/m2 20.5 k g/m2 MEDENT ([facility], [facility]) Body height 66 [in_i] 66 [in_i] MEDENT ([facility], [facility]) 5'6" Body weight 127.00 [lb_av] 127.00 [lb_av] MEDEN T ([facility], [facility]) Body temperature 96.9 [degF] 96.9 [degF] MEDENT ([facility], [facility]) Oxygen saturation in Arterial blood by Pulse oximetry 98 % 98 % MEDENT ([facility], [facility]) Respiratory rate 18 /min 18 /min MEDENT ( [facility], [facility]) Heart rate 115 /min 115 /min MEDENT ([facility], [facility]) Diastolic blood pressure 60 mm[Hg] 60 mm[Hg] MEDENT ([facility], [facility]) Systolic blood pressure 100 mm[Hg] 100 mm[Hg] M EDENT ([facility], [facility]) Diastolic blood pressure 77 mm[Hg] 77 mm[Hg] eCW1 ([facility]) Systolic blood pressure 112 mm[Hg] 112 mm[Hg] e CW1 ([facility]) Body temperature 98.7 [degF] 98.7 [degF] eCW1 ( [facility]) Respiratory rate 16 /min 16 /min eCW1 ([facility]) Heart rate 86 /min 86 /min eCW1 ([facility]) Body mass index (BMI) [Ratio] 20.82 kg/m2 20.82 kg/m2 W1 ([facility]) Body height 66 [in_us] 66 [in_us] eCW1 ([facility]) Body weight Measured 129 [lb_av] 129 [lb_av] eC W1 ([facility]) Patient Treatment Plan of Care Planned Activity Planned Date Details Description Data Source (s) ferrous sulfate 325 MG Oral Tablet 04/23/2020 12:00:00 AM EST eCW1 ([facility])
[2020-07-06 02:32] LABS: HEMATOCRIT 36.7 % (36.0-47.0); HEMOGLOBIN 11.3 g/dl (12.0-15.5); MEAN CORPUSCULAR HEMOGLOBIN 22.6 pg (27.0-33.0); MEAN CORPUSCULAR HGB CONC 30.8 g/dl (32.0-36.5); MEAN CORPUSCULAR VOLUME 73.5 fl (80.0-96.0); PLATELET COUNT, AUTOMATED 261 10^3/uL (150-450); RED BLOOD COUNT 4.99 10^6/uL (4.00-5.40); WHITE BLOOD COUNT 8.4 10^3/uL (4.0-10.0)
[2020-07-06] MEDS ORDERED: FENTANYL 2MCG/ML ROPIVACAINE 0.2% IN 0.9% NACL 100ML IVBAG As Ordered ONE (03:05)
[2020-07-06] MEDS ORDERED: ONDANSETRON 4MG/2ML VIAL IV PRN (03:30)
[2020-07-06] MEDS ORDERED: FENTANYL/ROPIVACAINE/NACL BAG 100 ML EPIDURAL SCH (03:30)
[2020-07-06] MEDS ORDERED: NALOXONE INJ 0.4MG/1ML VIAL (J2310 PER 1MG) IV PRN (03:30)
[2020-07-06] MEDS ORDERED: EPIDURAL/PCA KEYS XX PRN (03:30)
[2020-07-06] MEDS ORDERED: EPIDURAL COMMENT XX SCH (03:30)
[2020-07-06] MEDS ORDERED: ePHEDrine SULFATE 25 MG/5 ML(5MG/ML) SYRINGE IV PRN (03:30)
[2020-07-06] MEDS ORDERED: LACTATED RINGER'S 1000 ML IV PRN (03:30)
[2020-07-06] MEDS ORDERED: diphenhydrAMINE 50MG/ML VIAL (J1200) IV PRN (03:30)
[2020-07-06] MEDS ORDERED: REFRIGERATOR IV KEYS XX PRN (03:30)
--- NOTE | 2020-07-06 04:01 | HPEPDOC ---
Obstetrical History & Physical General Date of Admission Jul 06, 2020 at 02:05 Primary Care Physician: TAYLA JONES CNM History of Present Illness Alexandre is a 19-year-old female who is a at 40.4 weeks gestation with an ALONDRA of 07/02/20 based off of her LMP and consistent with her first trimester ul trasound. Her had been complicated by anemia and transfer of care from [facility] at 26 weeks gestation. Her anemia was treated with an iron transfusion. She presented to L&D with complaints of painful contractions that started at 8 pm on 07/05/20. She reports active movement. She denies leaking of fluid or vaginal bleeding. Chief Complaint: Contractions, term Information Provided By: Patient Age: 19 : 2 Term: 1 Pre-term: 0 Abortions: 0 Livin Dating Final EDC: Jul 02, 2020 Final EDC by: LMP EGA at Admission: 40.4 Antepartum Course Height (inches): 66 Admission Weight (lbs.): 148 Past Medical History Past Obstetrical History : Past Obstetrical History: Multigravida Gestation: 40.1 Type of Delivery: Spontaneous Vaginal Del. (04/09/2019) Sex of Infant: Male (weight 8 lbs 12 oz. ) Complications: No Past Medical History Medical History Anemia Surgical History: Denies/None Family History Significant Family History: No pertinent family hx Social History Marital Status: Family situation: Spouse/partner home Psychosocial History: No pertinent psych hx * Smoker: non-smoker Alcohol: Denies Drugs: denies Abuse Violence Screening Have you been hit/kicked/slapp: No Have you been sexually assault: No Imunizations Tdap status: current Allergies Coded Allergies: No Known Allergies (Unverified , 05/26/20) Medications Scheduled Ferrous Sulfate (Iron) 325 Mg Tablet, 1 TAB PO DAILY Vit37/Iron/Folic Acid (Prenata Chewable Tablet) 1 Each Tab.chew, 1 TAB PO DAILY Physical Examination Physical Examination GENERAL: Alert and oriented times three. BREAST: . ABDOMEN: Gravid and non-tender to touch. FETUS: Is vertex (VTX) by sterile vaginal examination (SVE), fetus is vertex (VTX) by Suhas. EFW 3900 grams. HEART RATE: Regular rate and rhythm. LUNGS: Clear to auscultation (CTA). EXTREMITIES: No edema. No clonus. Deep tendon reflexes (DTRs) + 2. Vital Signs/I&O Vital Signs Date Time Temp Pulse Resp B/P (MAP) Pulse Ox O2 Delivery O2 Flow Rate FiO2 07/06/20 03:14 78 16 112/67 (82) 07/06/20 01:15 98.0 Laboratory Data 24H LABS Laboratory Tests 2 07/06/20 02:11: Serology Scanned Report Hepatitis B Testing 07/06/20 02:18: Nucleated Red Blood Cells % (auto) 0.0 CBC/BMP Laboratory Tests 07/06/20 02:18 Urine Culture: No Growth Pertinent Laboratoy Data Blood Type: B+ RBC Antibody Screen: Negative HIV: Negative Hepatitis B: Negative Hepatitis C: Negative Rapid Plasma Reagin: Nonreactive Rubella: Immune Chlamydia/Gonorrhea: Negative Group B Streptococcus: Positive Glucose Tolerance Test: 99 Vaginal Examination Dilation: 3 cm Effacement: 50% Station: -2 Cervical Consistency: Soft Presentation: Cephalic presentation Position: Vertex (occiput) Assessment Heart Rate (FHR): 140 Variability: Moderate Accelerations: Positive Decelerations: None Tocometer Contractions: Yes Frequency: regular Multi-drug resistant Organism: No history of MDRO Assessment/Plan Assessment IUP at 40.4 weeks gestation early active labor Category I FHR tracing GBS positive. Plan Admit to L&D. OOB ad nabeel Diet: clears. Group B Streptococcus positive. Start IV PCN per order. Labs and intravenous (IV) per unit protocol. Counseled on Pitocin for augmentation of labor (IOL). Anesthesia consult per patient's request. Lactated Ringers (LR): Bolus 800 mL, then at 125 mL/hr. Anticipate cervical change and . C-S as appropriate. TAYLA JONES CNM Jul 06, 2020 04:00
[2020-07-06] MEDS: OXYTOCIN DRIP 30 UNITS in IV 1 EA IV SCH (06:29)
[2020-07-06] MEDS ORDERED: PENICILLIN G POTASSIUM IV 2.5 MU in IV 1 EA IV SCH (06:30)
--- NOTE | 2020-07-06 07:00 | DNPDOC ---
[facility] Delivery Note Delivery Note DATE OF DELIVERY: 07/06/20 at 0622 PREDELIVERY DIAGNOSIS: 40-4/7 weeks' gestation and labor. POST DELIVERY DIAGNOSIS: Delivered. PROCEDURE: Spontaneous vaginal delivery. [employer]: Tayla Lockwood CNM, KEI ANESTHESIA: epidural. ESTIMATED BLOOD LOSS: 150 mL. FINDINGS: 8 pounds 1 ounce;3650 grams; male infant, Score 9/9, nuchal cord times x1 loose. DELIVERY SUMMARY: Alexandre is a 19-year-old female who is now a who presented to L&D in early active labor. She received an epidural for pain management. Her labor was augmented with IV Pitocin. The patient called out to the nurse reporting that she had pressure and she stepped out to grab her equipment needed and the patient reported that the baby was out. She spontaneously ruptured clear fluid at this time and the head up past the shoulders were out. The nurse reported that there was a nuchal cord that was loose. I arrived and the baby was on the abdomen active and crying. The cord was clamped x2 and cut by the patient. A 3-vessel cord was noted. The placenta delivered spontaneously and intact at 0629. Uterine hemostasis was achieved via rapid infusion of IV Pitocin and fundal massage. The vagina, cervix, and perineum were inspected and found to be intact. They plan to name him Dev. She plans to formula feed and breastfeed. Both mom and baby are in stable condition. All counts of instruments and sponges are correct. TAYLA LOCKWOOD CNM Jul 06, 2020 07:00
[2020-07-06] MEDS ORDERED: SLF 3 ML SYR IV PRN ×2 (08:15→17:30)
[2020-07-06] MEDS ORDERED: DOCUSATE SODIUM 100MG CAPSULE PO PRN (09:15)
[2020-07-06] MEDS ORDERED: DIBUCAINE 1% OINTMENT 30GM TOP PRN (09:15)
[2020-07-06] MEDS ORDERED: MEASLES,MUMPS,RUBELLA VACCINE INJ (MMR-II) (90707) SC SCH (09:15)
[2020-07-06] MEDS ORDERED: RHOGAM 300 MCG (1500 IU) INJ (J2790) IM SCH (09:15)
[2020-07-06] MEDS ORDERED: IBUPROFEN 600MG TAB PO PRN (09:15)
[2020-07-06] MEDS ORDERED: ANUSOL HC CREAM 30GM TOP PRN (09:15)
[2020-07-06] MEDS ORDERED: METHYLERGONOVINE MALEATE 0.2 MG TAB PO PRN (09:15)
[2020-07-06] MEDS ORDERED: ACETAMINOPHEN 500 MG TAB PO PRN (09:15)
[2020-07-06] MEDS: IBUPROFEN 800 MG TAB PO PRN ×2 (13:52→22:14)
[2020-07-06] MEDS ORDERED: SLF 3 ML SYR IV SCH (14:00)
[2020-07-06] MEDS: ACETAMINOPHEN TAB 650MG DOSE (2X325MG) PO PRN (17:41)
[2020-07-06] MEDS: SLF 3 ML SYR IV SCH (22:14)
[2020-07-07] MEDS: SLF 3 ML SYR IV SCH (05:16)
[2020-07-07 05:37] VITALS: BP 114/72
[2020-07-07] MEDS: ACETAMINOPHEN TAB 650MG DOSE (2X325MG) PO PRN (08:06)
[2020-07-07] MEDS ORDERED: PRENATAL VITAMINS CHEWABLE TABLET PO SCH (09:00)
[2020-07-07] MEDS ORDERED: INFLUENZA QUADRIVALENT PF VACCINE 0.5ML SYRINGE IM ONE (09:00)
[2020-07-07] MEDS ORDERED: IBUP80TA PO (10:55)
[2020-07-07] MEDS ORDERED: ACET-683 PO (10:55)
== END 2020-07-07 13:20 | disposition home or self-care (01) | DRG 807 ==
LOC: M LDO 00:50 → M LDI 02:05 → M OBS 10:25
PROVIDERS: ADMIT Advanced Practice Midwife; ATTEND Advanced Practice Midwife
PROC: 10E0XZZ Delivery of Products of Conception, External Approach (ICD-10-PCS; principal; 2020-07-06)
DX: O48.0 Post-term pregnancy (principal); Z37.0 Single live birth; Z3A.40 40 weeks gestation of pregnancy; O99.820 Streptococcus B carrier state complicating pregnancy; O69.81X0 Labor and delivery complicated by cord around neck, without compression, not applicable or unspecified